=== PATIENT | male | born 1970 | race Caucasian/White ===

== ENCOUNTER 2019-11-07 07:40 | Outpatient (CLI) | payer OTHER ==
[2019-11-07 13:53] LABS: Anion Gap 11 mmol/L (10-20); BUN (Urea Nitrogen) 17 mg/dL (8.9-20.6); Calc. Creatinine Clearance 0 mL/min (70-130); Calcium 9.6 mg/dL (7.8-10.44); Carbon Dioxide 25 mmol/L (22-29); Chloride 105 mmol/L (98-107); Estimated GFR-MDRD 88; Glucose 85 mg/dL (70-105); Potassium 4.1 mmol/L (3.5-5.1); Sodium 137 mmol/L (136-145)
[2019-11-07 18:47] LABS: SARS-CoV-2 MS2 Positive; SARS-CoV-2 N Gene Negative; SARS-CoV-2 S Gene Negative; SARS-CoV-2 orf1ab Negative
== END 2019-11-07 07:41 | disposition home or self-care (01) ==
LOC: LABBT 07:40
PROVIDERS: ATTEND Otolaryngology Plastic Surgery within the Head & Neck
DX: Z01.818 Encounter for other preprocedural examination (principal); Z11.59 Encounter for screening for other viral diseases; K11.8 Other diseases of salivary glands; Q38.6 Other congenital malformations of mouth
CPT/HCPCS: 80048; 87635; 93005; 93010; U0003

== ENCOUNTER 2019-11-09 08:21 | Day surgery (SDC) | payer OTHER ==
[2019-11-07 11:37] VITALS: BMI 34.9
[2019-11-09] MEDS ORDERED: Fentanyl 100 MCG/2 ML VIAL ONE ×2 (09:41→11:10)
[2019-11-09] MEDS ORDERED: Lidocaine 1% w/Epinephrine 1:100K 20 ML VIAL ONE (09:55)
[2019-11-09] MEDS ORDERED: Bacitracin Zinc Ointment 30 gm TUBE ONE (09:55)
[2019-11-09] MEDS ORDERED: Ondansetron PF 4 MG/2 ML Vial ONE (10:53)
[2019-11-09] MEDS ORDERED: Dexamethasone 20 MG/5 ML VIAL ONE (10:53)
[2019-11-09] MEDS ORDERED: PROPOFOL 200 MG/20 ML VIAL ONE (10:53)
[2019-11-09] MEDS ORDERED: Lidocaine 1% PF 5 ML VIAL ONE (10:53)
[2019-11-09] MEDS ORDERED: Succinylcholine Chloride 20 MG/ML 10 ml SYRINGE FS ONE (10:53)
[2019-11-09] MEDS ORDERED: Labetalol HCl 100 MG/20 ML VIAL ONE (12:23)
[2019-11-09] MEDS ORDERED: HYDROcodone/Acetaminophen 5/325 mg Tablet ONE (13:40)
--- NOTE | 2019-11-10 09:34 | OP ---
DATE OF PROCEDURE: 11/09/2019 PREOPERATIVE DIAGNOSIS: Left parotid mass. POSTOPERATIVE DIAGNOSIS: Left parotid mass. PROCEDURE: Left superficial parotidectomy with intraoperative facial nerve monitor. ESTIMATED BLOOD LOSS: 40 mL. COMPLICATIONS: None. ANESTHESIA: GETA. DESCRIPTION OF PROCEDURE: The patient was taken to operating room, placed supine on the table. General endotracheal anesthesia was obtained. The patient was then prepped and draped in standard surgical fashion after a shoulder roll was placed. The facial nerve monitor was then set up, and electrodes were inserted into the orbicularis sean and orbicularis oculi muscle on his left side. The nerve monitor was tested and was remained on throughout the procedure. Following this, a modified Michael incision was made from the preauricular crease extending around the earlobe and then extended in a curvilinear fashion onto a neck crease approximately 2 cm below the angle of mandible. The skin up and skin down flap was then elevated over the parotid gland. A large 6 cm parotid mass was immediately identified. The gland was from the sternocleidomastoid muscle and was retracted anteriorly. Dissection was then carried down the tragal cartilage, and the tympanomastoid suture line was identified. Within the stylomastoid foramen, the facial nerve was identified and was dissected laterally until superior and inferior divisions were identified. Following this, the facial nerve was dissected freeing the bulk of the left superficial parotid including the large mass along with it. Hemostasis was obtained using bipolar electrocautery. The wound was then irrigated, and the skin was reapproximated using Monocryl stitches for the subcuticular layer and Prolene stitches for the skin. The facial nerve monitor was then turned off, and the electrodes were removed. The patient tolerated the procedure well. Job ID: [id number]
== END 2019-11-09 15:10 | disposition home or self-care (01) ==
LOC: SDC 08:21
PROVIDERS: ATTEND Otolaryngology Plastic Surgery within the Head & Neck
PROC: 0CBC0ZZ Excision of Left Parotid Duct, Open Approach (ICD-10-PCS; principal; 2019-11-09)
DX: D11.0 Benign neoplasm of parotid gland (principal); K13.79 Other lesions of oral mucosa; I10 Essential (primary) hypertension; Z79.899 Other long term (current) drug therapy; Z87.891 Personal history of nicotine dependence
CPT/HCPCS: 88307; J1100; J2001; J2405; J2704; J3010